=== PATIENT | female | born 1930 | race Caucasian/White ===

== ENCOUNTER 2017-05-24 00:56 | Emergency (ER) | payer MEDICARE, OTHER ==
[~2017-05-24] VITALS: Ht 167.6 cm; Wt 63.5 kg
[2017-05-24 05:28] VITALS: BP 100/52
== END 2017-05-24 05:29 | disposition home or self-care (01) ==
LOC: ER 00:56
DX: F41.9 Anxiety disorder, unspecified (principal); I10 Essential (primary) hypertension
CPT/HCPCS: 99284